=== PATIENT | male | born 1995 | race Caucasian/White ===

== ENCOUNTER 2020-03-29 13:36 | Emergency (ER) | payer BC, SELFPAY ==
[2020-03-29 14:03] VITALS: BP 126/78; PULSE 74; RESP 18; TEMP 36.6; O2SAT 100; BMI 28.3
--- NOTE | 2020-03-29 14:08 | HMH.EDUTC ---
[facility] [place] Clinical Impression: Exposure to COVID-19 virus, Encounter for laboratory testing for COVID-19 virus Disposition: Home, Self-Care Condition on Discharge: Good Instructions: Preventing the Spread of Coronavirus Discharge Instructions Additional Instructions: *Monitor Temp, Over the counter Motrin or Tylenol as directed/as needed Tylenol every 4 hours and Motrin every 6 hours (as long as your family doctor has told you that you can take it) for fever or pain. and straight to ER if unable to lower temp less than 101.0 after medication given *Warm salt water gargles may help to soothe the throat *Throat Lozenges *Warm fluids like tea with honey may help to soothe the throat *Sleep elevated *Humidifier/Vaporizer Follow up IMMEDIATELY for new or worsening symptoms or no Noticeable improvement over the next 48-72 hours. 911 for difficulty breathing or swallowing You was tested for today for COVID19 your test result should be back in the next 24-48 hours, you may call to the [facility] later today or tomorrow to see if your test results are back and the result [phone] [facility] hours are 9am-9pm You was given a handout with instructions for Self Quarantine and Self isolation for while you wait on test results and what to do if they are positive If you are positive the Health Dept will be contacting you also Referrals: Blair Rene MD [Primary Care Provider] - As needed Forms: Work/School Release Time of Disposition: 14:11 Medical Decision Making - Amos Inquiry Pt receiving controlled substance: No Amos was queried for this patient: No Vital Signs: 03/29/20 14:03 Temperature 97.9 F Temperature Source Oral Pulse Rate [Radial] 74 Respiratory Rate 18 Blood Pressure [Right Arm] 126/78 Blood Pressure Mean [Right Arm] 94 Blood Pressure Source [Right Arm] Automatic Cuff Blood Pressure Position [Right Arm] Sitting 02 Sat by Pulse Oximetry 100 Oxygen Delivery Method Room Air - Lab Data Lab results reviewed: Yes: I reviewed the patient's lab results. Orders (Tests/Meds): ORDERS Category Date Time Status Covid-19 Nasal PCR Sendout [facility] 03/29/20 14:07 Ordered [facility] [place] - General Stated complaint: covid exposure Time Seen by Provider: 03/29/20 14:10 Mode of Arrival: Ambulatory Source of Information: Patient Limitations: No Limitations Description of Symptoms (Recalled from Triage Doc. by RN): covid test HEENT Symptoms (Recalled from RN notes): No Resp Symptoms (Recalled from RN notes): No Skin Symptoms (Recalled from RN notes): No MS Symptoms (Recalled from RN notes): No Functional Status (Recalled from RN notes): wnl - History of Present Illness Provider Complaint: Patient states that his step father recently tested positive for COVID and he has been around him States that he come in today wanting to get tested for COVID Denies any symptoms - Related Data Allergies Allergy/AdvReac Type Severity Reaction Status Date / Time No Known Allergies Allergy Verified 03/29/20 14:06 - Worker's Comp Is this a Worker's Comp case?: No [facility] History - Hepatitis A Screen Drug use history?: No High risk sexual behaviors?: No History of sexually transmitted infection?: No Currently employed?: No Childcare worker?: No Do you have indoor plumbing?: Yes Do you have electricity?: Yes Attestation statement:: This patient has been screened for Hepatitis A risk factors. I have reviewed the patient's past medical history: Yes - Social History Alcohol Intake: never Occupational Status: employed ROS Obtained: Yes All systems reviewed & no additional complaints, Yes Systems reviewed as appropriate & no additional complaints - Constitutional Constitutional: Reports system reviewed and no additional complaints, except as docu, Denies body ache, Denies chills, Denies fever(s), Denies headache(s) - Eyes Eyes: Reports system reviewed and no additional complaints, except as docu - ENT E
[2020-03-29 14:21] VITALS: BP 126/78; PULSE 74; RESP 18; TEMP 36.6; O2SAT 100
[2020-03-31 10:30] LABS: Covid-19 Nasal PCR Sendout Lex NOT DETECTED
== END 2020-03-29 14:22 | disposition home or self-care (01) ==
PROVIDERS: Emergency Provider Nurse Practitioner; PCP Family Medicine
DX: Z20.828 Contact with and (suspected) exposure to other viral communicable diseases (principal)
CPT/HCPCS: 99201; U0004

== ENCOUNTER 2020-09-08 20:00 | Emergency (ER) | payer BC, SELFPAY ==
[2020-09-08 20:13] VITALS: BP 153/90; PULSE 96; RESP 16; TEMP 37.2; O2SAT 100; BMI 27.3
--- NOTE | 2020-09-08 20:41 | HMH.EDUTC ---
[facility] [place]: Allergic reaction Qualifiers: Encounter type: initial encounter Qualified Code(s): T78.40XA - Allergy, unspecified, initial encounter Disposition: Home, Self-Care Condition on Discharge: Good Instructions: DI for General Allergic Reactions Additional Instructions: Try to avoid contact with the offending substance. Don't start the oral steroids until tomorrow. Follow up with your regular doctor. GO TO THE ER FOR ANY WORSENING SYMPTOMS OR CONCERNS Prescriptions: diphenhydrAMINE HCL [Diphenhydramine HCl] 25 mg PO Q6HP PRN #30 cap PRN Reason: Itching Transmission Status: Received by [facility] methylPREDNISolone [Medrol] 4 mg PO DIRECTED 6 Days #21 [email or web address] Transmission Status: Received by [facility] Referrals: Blair Rene MD [Primary Care Provider] - Time of Disposition: 20:53 Medical Decision Making - Medical Records Medical records reviewed: No: I reviewed the patient's medical records. - Amos Inquiry Pt receiving controlled substance: No Vital Signs: 09/08/20 20:13 09/08/20 21:04 Temperature 99 F 99 F Temperature Source Oral Pulse Rate 92 H Pulse Rate [Right] 96 H Respiratory Rate 16 18 Blood Pressure 141/83 H Blood Pressure [Right Arm] 153/90 H Blood Pressure Mean [Right Arm] 111 Blood Pressure Source Automatic Cuff Blood Pressure Source [Right Arm] Automatic Cuff Blood Pressure Position [Right Arm] Sitting 02 Sat by Pulse Oximetry 100 Oxygen Delivery Method Room Air Orders (Tests/Meds): ED MEDICATIONS Discontinued Medications Generic Name Dose Route Start Last Admin Trade Name Freq PRN Reason Stop Dose Admin Methylprednisolone Sodium Succinate 125 mg 09/08/20 20:45 09/08/20 20:55 Methylprednisolone Sod Succ 125mg Vial IM 09/08/20 20:46 125 mg ONCE ONE Administration [facility] [place] - General Stated complaint: hives,nauseous Time Seen by Provider: 09/08/20 20:41 Mode of Arrival: Ambulatory Source of Information: Patient Limitations: No Limitations Description of Symptoms (Recalled from Triage Doc. by RN): pt c/o hives, fever, red swollen hands/feet. hives located on pants line, behind knees all up and down both arms trunk and were on his face yesterday. pt is having a little tightness in his chest from n/v two nights ago when this started. pt states this started after he went to [employer] and was bit by mosquitos. he states the night he was bit is when everything started and the hives started around the bites. HEENT Symptoms (Recalled from RN notes): No Resp Symptoms (Recalled from RN notes): No Skin Symptoms (Recalled from RN notes): Yes (hives, swolle hands and feet) MS Symptoms (Recalled from RN notes): No Functional Status (Recalled from RN notes): na - History of Present Illness Provider Complaint: He states that for the past 2 days he has had a rash on his arms, chest and back. He states he has had hives also. He denies any previous history of similar complaints. - Related Data Previous Rx's Medication Instructions Recorded diphenhydrAMINE HCL 25 mg PO Q6HP PRN #30 cap 09/08/20 [Diphenhydramine HCl] methylPREDNISolone [Medrol] 4 mg PO DIRECTED 6 Days #21 09/08/20 [email or web address] Allergies Allergy/AdvReac Type Severity Reaction Status Date / Time No Known Allergies Allergy Verified 09/08/20 20:28 - Worker's Comp Is this a Worker's Comp case?: No [facility] History - Hepatitis A Screen Drug use history?: No High risk sexual behaviors?: No History of sexually transmitted infection?: No Currently employed?: No Childcare worker?: No Do you have indoor plumbing?: Yes Do you have electricity?: Yes Attestation statement:: This patient has been screened for Hepatitis A risk factors. I have reviewed the patient's past medical history: Yes - Social History Alcohol Intake: never Occupational Status: employed ROS Obtained: Yes All systems reviewed & no additi
[2020-09-08 21:04] VITALS: BP 141/83; PULSE 92; RESP 18; TEMP 37.2
== END 2020-09-08 21:02 | disposition home or self-care (01) ==
PROVIDERS: Emergency Provider Nurse Practitioner Family; PCP Family Medicine
DX: L50.0 Allergic urticaria (principal)
CPT/HCPCS: 96372; 99202; G0463

== ENCOUNTER 2024-07-08 13:10 | Outpatient (CLI) | payer BC, SELFPAY ==
[2024-07-08 15:39] LABS: 3Hr Motility Quality Good Progression (Mod-Rapid); 3Hr Sperm Motility 60 % (50-60); Motility Quality Good Progression (Mod-Rapid); Semen Viscosity Stringy (Normal); Sperm Count 27 mil/mm3 (20-160); Sperm Morphology N (Normal); Sperm Motility 75 % (50-90); WBCs,Semen Negative
== END 2024-07-08 23:59 | disposition home or self-care (01) ==
LOC: LAB.DROPOF 13:11
PROVIDERS: PCP Family Medicine; Visit Provider Obstetrics & Gynecology
DX: Z31.41 Encounter for fertility testing (principal)
CPT/HCPCS: 89320

== ENCOUNTER 2025-04-12 16:20 | Outpatient (CLI) | payer BC, SELFPAY ==
[2025-04-12 19:31] LABS: Albumin Level 5.5 g/dl (3.5-5.0); Chloride 101 mmol/L (98-107); Potassium 5.8 mmoL/L (3.5-5.1); Sodium 138 mmol/L (136-145)
[2025-04-12 19:33] LABS: Blood Urea Nitrogen 11 mg/dl (9-20); Creatinine,Serum 0.90 mg/dl (0.66-1.25); Estimated Glomerular Filt Rate 100 ml/min (>60); GFR (African American) 122 ML/MIN (>60)
[2025-04-12 19:34] LABS: Alanine Aminotransferase 60 U/L (12-78); Albumin/Globulin Ratio 1.4 (1.1-1.8); Alkaline Phosphatase 78 U/L (38-126); Anion Gap 20.8 mEq/L (5-15); Aspartate Amino Transferase 66 U/L (17-59); Bilirubin,Total 1.3 mg/dl (0.2-1.3); Calcium 9.5 mg/dl (8.4-10.2); Carbon Dioxide 22 mmol/L (22.0-30.0); Globulin 3.8 g/dL (1.3-3.2); Glucose 81 mg/dl (74-100); Total Protein,Serum 9.3 g/dl (6.3-8.2)
[2025-04-12 19:49] LABS: Free T4 (Free Thyroxine) 1.04 ng/dl (0.78-2.19)
[2025-04-12 20:03] LABS: Thyroid Stimulating Hormone 0.62 uIU/mL (0.465-4.68)
== END 2025-04-12 23:59 ==
LOC: LAB.DROPOF 04-13 09:47
PROVIDERS: PCP Student in an Organized Health Care Education/Training Program; Visit Provider Student in an Organized Health Care Education/Training Program
DX: F41.9 Anxiety disorder, unspecified (principal); R03.0 Elevated blood-pressure reading, without diagnosis of hypertension
CPT/HCPCS: 80053; 84439; 84443

== ENCOUNTER 2025-04-15 09:01 | Outpatient (CLI) | payer BC, SELFPAY ==
[2025-04-15 10:50] LABS: Alanine Aminotransferase 53 U/L (12-78); Albumin Level 4.6 g/dl (3.5-5.0); Albumin/Globulin Ratio 1.6 (1.1-1.8); Alkaline Phosphatase 94 U/L (38-126); Anion Gap 12.4 mEq/L (5-15); Aspartate Amino Transferase 35 U/L (17-59); Bilirubin,Total 0.7 mg/dl (0.2-1.3); Blood Urea Nitrogen 12 mg/dl (9-20); Calcium 9.8 mg/dl (8.4-10.2); Carbon Dioxide 28 mmol/L (22.0-30.0); Chloride 101 mmol/L (98-107); Creatinine,Serum 0.90 mg/dl (0.66-1.25); Estimated Glomerular Filt Rate 100 ml/min (>60); GFR (African American) 122 ML/MIN (>60); Globulin 2.9 g/dL (1.3-3.2); Glucose 102 mg/dl (74-100); Potassium 4.4 mmoL/L (3.5-5.1); Sodium 137 mmol/L (136-145); Total Protein,Serum 7.5 g/dl (6.3-8.2)
== END 2025-04-15 23:59 | disposition home or self-care (01) ==
LOC: LAB 09:02
PROVIDERS: PCP Student in an Organized Health Care Education/Training Program; Visit Provider Student in an Organized Health Care Education/Training Program
DX: E87.5 Hyperkalemia (principal); R74.01 Elevation of levels of liver transaminase levels
CPT/HCPCS: 36415; 80053